=== PATIENT | female | born 2005 | race Caucasian/White ===

== ENCOUNTER 2024-08-25 13:34 | Emergency (ER) | payer OTHER ==
[2024-08-25] MEDS ORDERED: NA CHLORIDE 0.9% 1,000 ML ONE (14:57)
[2024-08-25] MEDS ORDERED: BISACODYL 10 MG RECTAL SUPP ONE (14:57)
[2024-08-25] MEDS ORDERED: ONDANSETRON 4 MG/2 ML VIAL ONE (14:57)
[2024-08-25] MEDS ORDERED: FAMOTIDINE 20 MG/2 ML VIAL IV ONE (14:57)
[2024-08-25] MEDS ORDERED: LACTULOSE 20 GM/30 ML UCUP ONE (14:58)
[2024-08-25 15:08] LABS: Absolute Basophils 0.1 K/uL (0-0.5); Absolute Eosinophils 0.1 K/uL (0-0.5); Absolute Lymphocytes (CBC) 2.8 K/uL (0.7-4.9); Absolute Monocytes 0.8 K/uL (0.1-1.3); Absolute Neutrophil 5.3 K/uL (1.8-8.0); Basophils % 0.6 % (0-1.3); Eosinophils % 0.9 % (0-4.4); Hematocrit 40.3 % (36.0-45.0); Lymphocytes % 31.1 % (15.3-44.8); MCH 33.8 pg (27.0-35.0); MCHC 34.6 g/dL (32.0-36.0); MCV 97.6 fL (80-100); Monocytes % 8.5 % (3.3-12.3); Neutrophils % 58.9 % (41.7-73.7); Nucleated Red Blood Cells % 0.1 % (0-0); Platelets 314 thou/uL (152-406); RBC Red Blood Cell Count 4.13 M/uL (3.86-4.86); Red Cell Distribution Width 14.2 % (12.1-15.2)
[2024-08-25 15:25] LABS: Albumin 4.2 g/dL (3.4-5.0); Albumin/Globulin Ratio 1.1 (1.1-1.8); Alkaline Phosphatase 68 U/L (45-117); Anion Gap 8.3 mEq/L (5.0-15.0); BUN Blood Urea Nitrogen 11 mg/dL (7-18); Bicarbonate 25 mEq/L (21-32); Bilirubin Total 0.7 mg/dL (0.2-1.0); Globulin 3.7 g/dL (2.3-3.5); Glomerular Filtration Rate 97 ml/min (=/>90); Glucose Level 84 mg/dL (74-106); Lipase 22 U/L (13-75); Potassium 3.3 mEq/L (3.5-5.1); Protein, Total 7.9 g/dL (6.4-8.2); Sodium Level 136 mEq/L (136-145)
[2024-08-25 15:27] LABS: ALT/SGPT < 14 U/L (13-56); AST/SGOT < 10 U/L (15-37)
--- NOTE | 2024-08-25 16:05 | EDPHYS ---
Physician Documentation [facility] Name: Bryan Zamarripa Age: 19 yrs Sex: Female : 2005 Arrival Date: 08/25/2024 Time: 13:34 Bed 3 Private MD: ED Physician Chapo Torres HPI: 08/25 15:21 This 19 yrs old Female presents to ER via Ambulatory with complaints of shaista Constipation, Abdominal Pain, Headache. 15:21 The patient complains of pain to the forehead. The patient describes the headache as shaista aching. 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 - Infectious Disease History:: Denies. - Social history:: Smoking status: Patient reports the use of cigarette tobacco products, denies chronic smoking, but will smoke occasionally. ROS: 15:23 Constitutional: Negative for fever, chills, and weight loss, Eyes: Negative for injury, shaista pain, redness, and discharge, ENT: Negative for injury, pain, and discharge, Neck: Negative for injury, pain, and swelling, Cardiovascular: Negative for chest pain, palpitations, and edema, Respiratory: Negative for shortness of breath, cough, wheezing, and pleuritic chest pain, Back: Negative for injury and pain, : Negative for injury, bleeding, discharge, and swelling, MS/Extremity: Negative for injury and deformity, Skin: Negative for injury, rash, and discoloration, Psych: Negative for depression, anxiety, suicide ideation, homicidal ideation, and hallucinations, Allergy/Immunology: Negative for hives, rash, and allergies, Endocrine: Negative for neck swelling, polydipsia, polyuria, polyphagia, and marked weight changes, Hematologic/Lymphatic: Negative for swollen nodes, abnormal bleeding, and unusual bruising, 15:23 Abdomen/GI: Positive for abdominal pain, constipation, Exam: 15:23 Constitutional: This is a well developed, well nourished patient who is awake, alert, shaista and in no acute distress. Head/Face: Normocephalic, atraumatic. Eyes: Pupils equal round and reactive to light, extra-ocular motions intact. Lids and lashes normal. Conjunctiva and sclera are non-icteric and not injected. Cornea within normal limits. Periorbital areas with no swelling, redness, or edema. ENT: Nares patent. No nasal discharge, no septal abnormalities noted. Tympanic membranes are normal and external auditory canals are clear. Oropharynx with no redness, swelling, or masses, exudates, or evidence of obstruction, uvula midline. Mucous membranes moist. Neck: Trachea midline, no thyromegaly or masses palpated, and no cervical lymphadenopathy. Supple, full range of motion without nuchal rigidity, or vertebral point tenderness. No Meningismus. Chest/axilla: Normal chest wall appearance and motion. Nontender with no deformity. No lesions are appreciated. Cardiovascular: Regular rate and rhythm with a normal S1 and S2. No gallops, murmurs, or rubs. Normal PMI, no JVD. No pulse deficits. Respiratory: Lungs have equal breath sounds bilaterally, clear to auscultation and percussion. No rales, rhonchi or wheezes noted. No increased work of breathing, no retractions or nasal flaring. Back: No spinal tenderness. No costovertebral tenderness. Full range of motion. Skin: Warm, dry with normal turgor. Normal color with no rashes, no lesions, and no evidence of cellulitis. MS/ Extremity: Pulses equal, no cyanosis. Neurovascular intact. Full, normal range of motion., bilateral aka Neuro: Awake and alert, GCS 15, oriented to person, place, time, and situation. Cranial nerves II-XII grossly intact. Motor strength 5/5 in all extremities. Sensory grossly intact. Cerebellar exam normal. Normal gait. Psych: Awake, alert, with orientation to person, place and time. Behavior, mood, and affect are within normal limits. 15:23 Abdomen/GI: Inspection: abdomen appears normal, Bowel sounds: normal, Palpation: abdomen is soft and non-tender, Liver: no appreciated palpable abnormalities, Hernia: not appreciated, Vital Signs: 14:06 BP 110 / 80; Pulse 91; Resp 16; Temp 98.2; Pulse Ox 98% ; Weight 58.97 kg; Height 5 ft. me1 3 in. ; Pain 8/10; 15:19 BP 114 / 78; Pulse 80; Resp 16; Pulse Ox 100% on R/A; dd2 17:15 BP 117 / 72; Pulse 83; Resp 16; Pulse Ox 100% ; dd2 14:06 Body Mass Index 23.03 (58.97 kg, 160.02 cm) me1 14:06 Pain Scale: Adult me1 [place] Coma Score: 15:25 Eye Response: spontaneous(4). Motor Response: obeys commands(6). Verbal Response: shaista oriented(5). Total: 15. MDM: 13:39 Medical Screening Exam initiated shaista 15:25 Differential diagnosis: cluster headache, tension headache, vasomotor headache, bowel shaista obstruction, Cholelithiasis, diverticulitis, gastritis, Mesenteric ischemia or infarction. Data reviewed: vital signs, nurses notes, lab test result(s), radiologic studies, CT scan. Consideration of Admission/Observation Escalation of care including admission/observation considered. I considered the following discharge prescriptions or medication management in the emergency department Medications were administered in the Emergency Department. See MAR. Independent interpretation of the following test(s) in the Emergency Department CT Scan: My interpretation is CT AB/PEL. Test considered but Not performed: Ultrasound NO ABD USG. Care significantly affected by the following chronic conditions: NONE. 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 08/25 13:40 Order name: CBC with Diff; Complete Time: 16:03 [facility] 08/25 13:40 Order name: CMP; Complete Time: 16:03 [facility] 08/25 13:40 Order name: Lipase; Complete Time: 16:03 [facility] 08/25 13:40 Order name: Test, Urine [facility] 08/25 13:40 Order name: UA Rfx Jaret Cult if indicated [facility] 08/25 13:47 Order name: Abdomen EDMS 08/25 13:40 Order name: IV Saline Lock; Complete Time: 15:07 [facility] 08/25 13:40 Order name: Labs collected and sent; Complete Time: 15:07 [facility] Administered Medications: 15:07 Drug: Famotidine IVP 20 mg IVP once; dilute with 10 mL 0.9% NaCl; give over 2 minutes dd2 Route: IVP; Site: right antecubital; 15:22 Follow up: Response: No adverse reaction dd2 15:07 Drug: Ondansetron IVP 4 mg IVP once; over 2 minutes Route: IVP; Site: right antecubital;dd2 15:22 Follow up: Response: No adverse reaction dd2 15:07 Drug: NS 0.9% IV 1000 ml IV at 1 bolus Per protocol; to be given as a bolus over 60 dd2 minutes Route: IV; Rate: 1 bolus; Site: right antecubital; 16:10 Follow up: IV Status: Completed infusion dd2 15:07 Drug: Lactulose PO 30 grams 45 ml PO once Volume: 45 ml; Route: PO; dd2 15:37 Follow up: Response: No adverse reaction dd2 15:07 Drug: Dulcolax [place] Suppository 10 mg [place] once Route: [place]; dd2 15:37 Follow up: Response: No adverse reaction dd2 17:11 Drug: Potassium PO Effervescent Tablet 25 mEq PO once; dissolve in 4 ounces of water or bp juice Route: PO; 17:33 Follow up: Response: No adverse reaction dd2 Disposition Summary: 08/25/24 16:04 Discharge Ordered Notes: Location: Home shaitsa Problem: new shaista Symptoms: have improved shaista Condition: Stable shaista Diagnosis - Abdominal pain, Generalized shaista - Constipation shaista - Hypokalemia shaista Followup: shaista - With: Private Physician - When: 2 - 3 days - Reason: Recheck today's complaints, Continuance of care, Re-evaluation by your physician Followup: shaista - With: Keila Perez MD - When: 2 - 3 days - Reason: Recheck today's complaints, Re-evaluation by your physician Discharge Instructions: - Discharge Summary Sheet shaista - Constipation, Adult sahista - High-Fiber Eating Plan shaista - Potassium Content of Foods shaista - Constipation, Adult, [id number] shaista - Hypokalemia shaista Forms: - Medication Reconciliation Form shaista - Antibiotic Education shaista - Prescription Opioid Use shaista - Patient Portal Instructions shaista - Leadership Thank You Letter shaista - Work release form iw - Family Work Release iw Prescriptions: - Dulcolax (bisacodyl) 10 mg Rectal suppository - insert 1 suppository RECTAL route every 12 hours PRN; 10 suppository; Refills: shaista 0, Product Selection Permitted - Lactulose 10 gram/15 mL Oral Solution - take 30 milliliters ORAL route once daily; 300 milliliter; Refills: 0, Product shaista Selection Permitted Signatures: Dispatcher [employer] EDChapo Sanders MD MD cha Peltier, Brian, RN RN Nancy Roe, RN RN me1 QUANG PISANO RN RN dd2 Corrections: (The following items were deleted from the chart) 13:41 13:41 CBC+H.LAB.BRZ ordered. EDMS EDMS 13: 13:41 COMPREHENSIVE METABOLIC PANEL+C.LAB.BRZ ordered. EDMS EDMS 13:41 13:41 LIPASE+C.LAB.BRZ ordered. EDMS EDMS 13:41 13:41 Test, Urine+UC.LAB.BRZ ordered. EDMS EDMS 13: 13:41 UA Rfx Jaret Cult if indicated+U.LAB.BRZ ordered. EDMS EDMS 13:41 13:41 Abdomen Pelvis W Con+CT.RAD.BRZ ordered. EDMS EDMS
--- NOTE | 2024-08-25 16:05 | ER ---
Nurse's Notes [facility] Name: Bryan Zamarripa Age: 19 yrs Sex: Female : 2005 Arrival Date: 08/25/2024 Time: 13:34 Bed 3 Private MD: Diagnosis: Abdominal pain, Generalized;Constipation;Hypokalemia Presentation: 08/25 14:06 Chief complaint: Patient states: c/o VAUGHAN, diffuse abdominal pain "8/10" "cramping", No me1 BM x 1 week with nausea. Coronavirus screen: Vaccine status: Patient reports receiving the 2nd dose of the covid vaccine. Ebola Screen: No symptoms or risks identified at this time. Initial Sepsis Screen: Does the patient meet any 2 criteria? No. Patient's initial sepsis screen is negative. Does the patient have a suspected source of infection? No. Patient's initial sepsis screen is negative. Risk Assessment: Do you want to hurt yourself or someone else? Patient reports no desire to harm self or others. Onset of symptoms is unknown. 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 - Infectious Disease History:: Denies. - Social history:: Smoking status: Patient reports the use of cigarette tobacco products, denies chronic smoking, but will smoke occasionally. Screenin:12 [facility] ED Fall Risk Assessment (Adult) History of falling in the last 3 months, dd2 including since admission No falls in past 3 months (0 pts) Confusion or Disorientation No (0 pts) Intoxicated or Sedated No (0 pts) Impaired Gait No (0 pts) Mobility Assist Device Used No (0 pt) Altered Elimination No (0 pt) Score/Fall Risk Level 0 - 2 = Low Risk Oriented to surroundings, Maintained a safe environment, Educated pt \\T\\ family on fall prevention, incl call for assistance when getting out of bed, Assessed \\T\\ reinforced patient's understanding of fall precautions, Hourly rounding (assess needs \\T\\ fall precautionary measures) done. Abuse screen: Denies threats or abuse. Denies injuries from another. Nutritional screening: No deficits noted. Tuberculosis screening: No symptoms or risk factors identified. Assessment: 15:18 General: Appears in no apparent distress. uncomfortable, Behavior is calm, cooperative, dd2 appropriate for age. Pain: Complains of pain in abdomen. Neuro: No deficits noted. Cardiovascular: No deficits noted. Respiratory: No deficits noted. GI: Abdomen is non-distended, Bowel sounds present X 4 quads. Abd is soft X 4 quads Abdomen is tender to palpation in right lower quadrant and left lower quadrant Reports constipation. : No deficits noted. No signs and/or symptoms were reported regarding the genitourinary system. EENT: No deficits noted. No signs and/or symptoms were reported regarding the EENT system. Derm: No deficits noted. No signs and/or symptoms reported regarding the dermatologic system. Musculoskeletal: No deficits noted. No signs and/or symptoms reported regarding the musculoskeletal system. Circulation, motion, and sensation intact. Range of motion: intact in all extremities. 17:38 Reassessment: Patient appears in no apparent distress at this time. Patient and/or iw family updated on plan of care and expected duration. Pain level reassessed. Patient is alert, oriented x 3, equal unlabored respirations, skin warm/dry/pink. Patient states feeling better. Patient states symptoms have improved. Vital Signs: 14:06 BP 110 / 80; Pulse 91; Resp 16; Temp 98.2; Pulse Ox 98% ; Weight 58.97 kg; Height 5 ft. me1 3 in. ; Pain 8/10; 15:19 BP 114 / 78; Pulse 80; Resp 16; Pulse Ox 100% on R/A; dd2 17:15 BP 117 / 72; Pulse 83; Resp 16; Pulse Ox 100% ; dd2 14:06 Body Mass Index 23.03 (58.97 kg, 160.02 cm) me1 14:06 Pain Scale: Adult me1 [place] Coma Score: 15:25 Eye Response: spontaneous(4). Motor Response: obeys commands(6). Verbal Response: shaista oriented(5). Total: 15. ED Course: 13:37 Patient arrived in ED. im 13:39 Chapo Torres MD is Attending Physician. shaista 14:08 Triage completed. me1 14:08 Arm band placed on Patient placed in an exam room. me1 14:37 George Pond, RN is Primary Nurse. bp 15:01 Radiology exam delayed due to test not completed at this time. sm9 15:07 CBC with Diff Sent. dd2 15:07 CMP Sent. dd2 15:07 Lipase Sent. dd2 15:08 No provider procedures requiring assistance completed. Initial lab(s) drawn, by nv, dd2 sent to lab. Inserted saline lock: 20 gauge in right antecubital area, using aseptic technique. Blood collected. Flushed with 10 mL NS. Patient maintains SpO2 saturation greater than 95% on room air. 15:12 Patient has correct armband on for positive identification. Bed in low position. Call dd2 light in reach. Side rails up X 1. Provided Education on: MEDICATIONS, TESTING. Client placed on continuous cardiac and pulse oximetry monitoring. NIBP monitoring applied. Door closed. Noise minimized. Warm blanket given. Pillow given. Verbal reassurance given. 15:59 Radiology exam delayed due to test not completed at this time. mw3 16:04 Keila Perez MD is Referral Physician. shaista 16:53 Abdomen In Process Unspecified. EDMS 17:38 IV discontinued, intact, bleeding controlled, No redness/swelling at site. Pressure iw dressing applied. Administered Medications: 15:07 Drug: Famotidine IVP 20 mg IVP once; dilute with 10 mL 0.9% NaCl; give over 2 minutes dd2 Route: IVP; Site: right antecubital; 15:22 Follow up: Response: No adverse reaction dd2 15:07 Drug: Ondansetron IVP 4 mg IVP once; over 2 minutes Route: IVP; Site: right antecubital;dd2 15:22 Follow up: Response: No adverse reaction dd2 15:07 Drug: NS 0.9% IV 1000 ml IV at 1 bolus Per protocol; to be given as a bolus over 60 dd2 minutes Route: IV; Rate: 1 bolus; Site: right antecubital; 16:10 Follow up: IV Status: Completed infusion dd2 15:07 Drug: Lactulose PO 30 grams 45 ml PO once Volume: 45 ml; Route: PO; dd2 15:37 Follow up: Response: No adverse reaction dd2 15:07 Drug: Dulcolax [place] Suppository 10 mg [place] once Route: [place]; dd2 15:37 Follow up: Response: No adverse reaction dd2 17:11 Drug: Potassium PO Effervescent Tablet 25 mEq PO once; dissolve in 4 ounces of water or bp juice Route: PO; 17:33 Follow up: Response: No adverse reaction dd2 Medication: 17:38 VIS not applicable for this client. iw Outcome: 16:04 Discharge ordered by . shaista 17:38 Discharged to home ambulatory, with family, iw 17:38 Condition: good 17:38 Discharge instructions given to patient, family, Instructed on discharge instructions, follow up and referral plans. Demonstrated understanding of instructions, follow-up care, medications, Prescriptions given X 2, 17:39 Patient left the ED. iw Signatures: Dispatcher [employer] EDMS Chapo Torres MD MD cha Williams, Irene, RN KRYSTAL iw George Pond RN RN Nancy Shin mw3 Keke Kenyon Michelle, RN RN nv1 Luh Forrest 9 QUANG PISANO RN RN dd2
[2024-08-25 16:43] LABS: Specific Gravity 1.019 (1.005-1.030)
[2024-08-25 16:55] LABS: Specific Gravity 1.019 (1.005-1.030); Sqamous Epithelial <5 /HPF (None Seen); Urine Bacteria None Seen /HPF (<20); Urine Bilirubin NEGATIVE (Negative); Urine Blood Negative (Negative); Urine Clarity Turbid (Clear); Urine Color Light-Yellow (Yellow); Urine Culture Reflex Order NOT NEEDED; Urine Glucose NEGATIVE (Negative); Urine Ketones 1+ (Negative); Urine Microscopic Reflex YN ORDER UMIC; Urine Mucus 1+ /HPF (None Seen); Urine Nitrite NEGATIVE (Negative); Urine Protein NEGATIVE (Negative); Urine RBC None Seen /HPF (None Seen); Urine Urobilinogen Normal (Normal); Urine WBC None Seen /HPF (<5); Urine pH 5.5 (5.0-7.0)
[2024-08-25] MEDS ORDERED: POTASSIUM 25 MEQ EFFERV TAB ONE (16:58)
--- NOTE | 2024-08-25 17:01 | RAD REPORT ---
EXAMINATION: Abdomen Pelvis Wo Contrast CLINICAL INDICATION: Female, 19 years old.Constipation;Abd pain TECHNIQUE: CT abdomen and pelvis was performed, without IV contrast, as per department protocol. Axia l, sagittal and coronal reconstructions were obtained. One or more of the following dose reduction techniques were used: Automated exposure control, adjustment of the mA and/or kV according to the pat ient size, and/or iterative reconstruction. Unless otherwise specified, incidental findings do not require dedicated imaging follow-up. [id number]. IV CONTRAST: Not administered. COMPARISON: None FINDINGS: The lack of intravenous contrast limits the sensitivity of this exam for evaluation of solid visceral organs, vascular structures, and retroperitoneum. LOWER CHEST: No acute process identified.No significant pericardial effusion. UPPER GI: No significant abnormality. LIVER: No significant focal abnormality. GALLBLADDER/BILE DUCTS: No biliary ductal dilatation.? PANCREAS: No mass, ductal dilation, or pérez-pancreatic fluid. SPLEEN: Unremarkable. ADRENALS: No adrenal masses. KIDNEYS AND URETERS: No hydronephrosis.Low-density right upper pole renal lesion is likely a cyst. ABDOMINAL AORTA AND OTHER VESSELS: Normal caliber aorta and IVC. PERITONEUM: No abnormal free fluid. No free air. LYMPH NODES: No pathologic lymphadenopathy. ABDOMINAL WALL: Unremarkable SMALL BOWEL/COLON: Small bowel has normal course and caliber. No colonic wall thickening or pericolon ic inflammatory changes.Normal appendix. URINARY BLADDER: Underdistended but grossly unremarkable. REPRODUCTIVE ORGANS: No pathologic process. IUD. 3.6 cm simple appearing right adnexal cyst which vilchis s not require follow-up. MUSCULOSKELETAL: No acute or suspicious osseous abnormality. ADDITIONAL FINDINGS: None. IMPRESSION: No acute findings within the abdomen or pelvis.
[2024-08-25 17:43] VITALS: TEMP 98.2
[2024-08-25 17:44] VITALS: O2SAT 100
[2024-08-25 17:46] VITALS: BP 117/72
== END 2024-08-25 17:39 | disposition home or self-care (01) ==
LOC: ER 13:34
DX: K59.00 Constipation, unspecified (principal); E87.6 Hypokalemia; F17.210 Nicotine dependence, cigarettes, uncomplicated
CPT/HCPCS: 96361; 85025; 81001; 36415; 81025; 83690; 80053; 74176; 96375; 96374; 99284; J2405; J7030